=== PATIENT | male | born 1980 | race Caucasian/White ===

== ENCOUNTER 2019-04-08 10:08 | Emergency (ER) | payer BC ==
[~2019-04-08] VITALS: Ht 177.8 cm; Wt 94.8 kg
--- OUTSIDE RECORDS SUMMARY | ~2019-04-08 | XMS | Clinical Summary ---
Demographics + + + | Address | [address] | | | [place] [address] | + + + | Home Phone | | + + + | Preferred Language | Unknown | + + + | Marital Status | | + + + | Buddhist Affiliation | 1027 | + + + | Race | Unknown | + + + | Ethnic Group | Unknown | + + + Author + + + | Author | Tiffanie Ask Ziggy | + + + | Organization | [facility] | + + + | Address | Unknown | + + + | Phone | Unavailable | + + + Support + + + + + | Name | Relationship | Address | Phone | + + + + + | Message,Detailed | ECON | Unknown | | + + + + + | Rafita Hutchison | ECON | [address] | | | | | [place] | | | | | [address] | | + + + + + | Yanira Hutchison | ECON | [address] | | | | | [place] | | | | | [address] | | + + + + + Care Team Providers + +------+ + | Care Substation Operator Transforming Name | Role | Phone | + +------+ + | Vargas Rincon MD | PP | | + +------+ + Allergies No Known Allergies Current Medications No known medications Active Problems + + + | Problem | Noted Date | + + + | Corky hitchcock lumbar spine | 05/21/2015 | + + + Social History + +-------+ +--------+------+ | Tobacco Use | Types | Packs/Day | Years | Date | | | | | Used | | + +-------+ +--------+------+ | Never Smoker | | | | | + +-------+ +--------+------+ + + +---------+ + | Alcohol Use | Drinks/We | oz/Week | Comments | | | ek | | | + + +---------+ + | No | | | | + + +---------+ + + + + | Sex Assigned at | Date Recorded | | | | + + + | Not on file | | + + + Last Filed Vital Signs + + + + | Vital Sign | Reading | Time Taken | + + + + | Blood Pressure | 133/79 | 09/13/2015 1:50 PM PDT | + + + + | Pulse | 85 | 09/13/2015 1:50 PM PDT | + + + + | Temperature | 36.9 C (98.5 F) | 06/19/2015 9:00 AM PDT | + + + + | Respiratory Rate | 18 | 06/19/2015 9:00 AM PDT | + + + + | Oxygen Saturation | 96% | 09/13/2015 1:50 PM PDT | + + + + | Inhaled Oxygen | - | - | | Concentration | | | + + + + | Weight | 83.9 kg (185 lb) | 05/19/2016 10:29 AM PDT | + + + + | Height | 177.8 cm (5' 10") | 05/19/2016 10:29 AM PDT | + + + + | Body Mass Index | 26.54 | 05/19/2016 10:29 AM PDT | + + + + Plan of Treatment + + + + + | Health Maintenance | Due Date | Last Done | Comments | + + + + + | Vaccine: | | | | | Dtap/Tdap/Td (1 - | 0 | | | | Tdap) | | | | + + + + + | Vaccine: Influenza | | | | | (Season Ended) | 9 | | | + + + + + Results Not on filefrom Last 3 Months Insurance +---------+--------+ +------+-------+ + | Payer | Benefi | Subscriber | Type | Phone | Address | | | t Plan | ID | | | | | | / | | | | | | | Group | | | | | +---------+--------+ +------+-------+ + | PREMERA | PREMER | [id number] | | | [address] [address] | | | A BLUE | 4 | | | [place], [place] | | | CARD | | | | [phone] | +---------+--------+ +------+-------+ + + +--------+ +--------+ + + | Guarantor Name | Accoun | Relation to | Date | Phone | Billing Address | | | t Type | Patient | of | | | | | | | | | | + +--------+ +--------+ + + | SREE HUTCHISON | Person | Self [birth year] | Home: | [address] [place] [address] | | | al/Fam | | 1980 | [phone] | [place] | | | ant | | | [phone] | [phone] | + +--------+ +--------+ + +
--- OUTSIDE RECORDS SUMMARY | ~2019-04-08 | XMS | Clinical Summary ---
Demographics + + + | Address | [address] | | | [place] [address] | + + + | Home Phone | | + + + | Preferred Language | Unknown | + + + | Marital Status | | + + + | Sikhism Affiliation | 1027 | + + + | Race | Unknown | + + + | Ethnic Group | Unknown | + + + Author + + + | Author | [facility] | | | and [place] | + + + | Organization | [facility] | | | and [facility] | + + + | Address | Unknown | + + + | Phone | Unavailable | + + + Support + + +---------+ + | Name | Relationship | Address | Phone | + + +---------+ + | Yanira Daniel | ECON | Unknown | | + + +---------+ + Care Team Providers + +------+ + | Care Agriculturist Name | Role | Phone | + +------+ + | Rafita Rincon MD | PP | | + +------+ + Allergies No Known Allergies Medications No known medications Active Problems + + + | Problem | Noted Date | + + + | Closed fracture of lumbar vertebra without spinal cord injury | 10/24/2016 | + + + | Chronic midline low back pain without sciatica | 10/24/2016 | + + + Family History + + +------+ + | Medical History | Relation | Name | Comments | + + +------+ + | Other (see comment) | Brother | | VICTORIA'S DISEASE | + + +------+ + | No known problems | Father | | | + + +------+ + | No known problems | Maternal | | | | | Grandfath | | | | | er | | | + + +------+ + | Ovarian cancer | Maternal | | | | | Grandmoth | | | | | er | | | + + +------+ + | No known problems | Mother | | | + + +------+ + | No known problems | Paternal | | | | | Grandfath | | | | | er | | | + + +------+ + | Ovarian cancer | Paternal | | | | | Grandmoth | | | | | er | | | + + +------+ + | Thyroid disease | Sister | | | + + +------+ + + +------+ + + | Relation | Name | Status | Comments | + +------+ + + | Brother | | | VICTORIA'S DISEASE | | | | (Age | | | | | 25) | | + +------+ + + | Brother | | | | + +------+ + + | Father | | Alive | | + +------+ + + | Maternal Grandfather | | Other | Status Unknown | + +------+ + + | Maternal Grandmother | | Other | Status Unknown | + +------+ + + | Mother | | Alive | | + +------+ + + | Paternal Grandfather | | Other | Status Unknown | + +------+ + + | Paternal Grandmother | | Other | Status Unknown | + +------+ + + | Sister | | Alive | | + +------+ + + | Sister | | | | + +------+ + + Social History + +-------+ +--------+------+ | Tobacco Use | Types | Packs/Day | Years | Date | | | | | Used | | + +-------+ +--------+------+ | Never Smoker | | | | | + +-------+ +--------+------+ + +---+---+---+ | Smokeless Tobacco: | | | | | Never Used | | | | + +---+---+---+ + + +---------+ + | Alcohol Use | Drinks/We | oz/Week | Comments | | | ek | | | + + +---------+ + | No | 0 | 0.0 | | | | Standard | | | | | drinks or | | | | | | | | | | equivalen | | | | | t | | | + + +---------+ + + + + | Sex Assigned at | Date Recorded | | | | + + + | Not on file | | + + + + + + + | Job Start Date | Occupation | Industry | + + + + | Not on file | Not on file | Not on file | + + + + + + + + | Travel History | Travel Start | Travel End | + + + + + + | No recent travel history available. | + + Last Filed Vital Signs + + + + | Vital Sign | Reading | Time Taken | + + + + | Blood Pressure | 135/77 | 10/22/2016857 PST | + + + + | Pulse | 71 | 10/22/2016857 PST | + + + + | Temperature | - | - | + + + + | Respiratory Rate | - | - | + + + + | Oxygen Saturation | - | - | + + + + | Inhaled Oxygen | - | - | | Concentration | | | + + + + | Weight | 86.1 kg (189 lb 12.8 | 10/22/2016857 PST | | | oz) | | + + + + | Height | 177.8 cm (5' 10") | 10/22/2016857 PST | + + + + | Body Mass Index | 27.23 | 10/22/2016857 PST | + + + + Plan of [...] Not on filefrom Last 3 Months Insurance +-------+--------+ +--------+-------+---------+------+ | Payer | Benefi | Subscriber | Effect | Phone | Address | Type | | | t Plan | ID | richy | | | | | | / | | Dates | | | | | | Group | | | | | | +-------+--------+ +--------+-------+---------+------+ | BCBS | BCBS | [id number] | 11/30/19 | | | PPO | | | OOS | 4 | 16-Pre | | | | | | PPO | | sent | | | | +-------+--------+ +--------+-------+---------+------+ + +--------+ +--------+ + + | Guarantor Name | Accoun | Relation to | Date | Phone | Billing Address | | | t Type | Patient | of | | | | | | | | | | + +--------+ +--------+ + + | Sree Daniel Call | Person | Self [birth year] | | [address] | | | al/Fam | | 1980 | [phone] | [place] [address] | | | ant | | | 9 (Home) | | + +--------+ +--------+ + + Advance Directives Patient has advance care planning documents on file. For more information, please contact:[facility] [place] [address]
--- OUTSIDE RECORDS SUMMARY | ~2019-04-08 | XMS | Clinical Summary ---
Demographics + + + | Address | [address] | | | [place] [address] | + + + | Home Phone | | + + + | Preferred Language | Unknown | + + + | Marital Status | | + + + | Muslim Affiliation | 1027 | + + + | Race | Unknown | + + + | Ethnic Group | Unknown | + + + Author + + + | Author | [facility] | | | and [place] | + + + | Organization | [facility] | | | and [place] | [...] Team Providers + +------+ + | Care Lead Data Entry Operator Name | Role | Phone | + [...] +-------+--------+ +--------+-------+---------+------+ | BCBS | BCBS | [id number] | 11/30/19 | | | PPO | [...] | 1980 | [phone] | [place] [address] | | | ant | | | 9 (Home) | | + +--------+ +--------+ + + Advance Directives Patient has advance care planning documents on file. For more information, please contact:[facility] [place] [address]
--- OUTSIDE RECORDS SUMMARY | ~2019-04-08 | XMS | Clinical Summary ---
Demographics + + + | Address | [address] | | | [place] [address] | + + + | Home Phone | | + + + | Preferred Language | Unknown | + + + | Marital Status | | + + + | Oriental Orthodox Affiliation | 1027 | + + + | Race | Unknown | + + + | Ethnic Group | Unknown | + + + Author + + + | Author | Tiffanie SalesWarp | + + + | Organization | [facility] | + + + | Address [...] [place] | | | | | [address] | | + + + + + | Yainra Hutchison | ECON | [address] | | | | | [place] | | | | | [address] | | + + + + + Care Team Providers + +------+ + | Care Diesel Maintenance Technician Name | Role | Phone | + [...] +------+-------+ + | PREMERA | PREMER | [id number] | | | [address] [address] | | | A BLUE | 4 | | | [place], [place] | | | CARD | | | | [phone] | +---------+--------+ +------+-------+ + + +--------+ +--------+ + + | Guarantor Name | Accoun | Relation to | Date | Phone | Billing Address | | | t Type | Patient | of | | | | | | | | | | + +--------+ +--------+ + + | SREE HUTCHISON | Person | Self | [birth year] | Home: | [address] [place] [address] | | | al/Fam | | 1980 | [phone] | [place] | | | ant | | | [phone] | [phone] | + +--------+ +--------+ + +
[2019-04-08] MEDS ORDERED: ADVIL200 M1 PO (10:18)
== END 2019-04-08 10:23 | disposition home or self-care (01) ==
LOC: ED 10:08
DX: S49.91XA Unspecified injury of right shoulder and upper arm, initial encounter (principal); X58.XXXA Exposure to other specified factors, initial encounter

== ENCOUNTER 2025-07-26 11:57 | Emergency (ER) | payer OTHER ==
[~2025-07-26] VITALS: Ht 177.8 cm; Wt 95.0 kg
[~2025-07-26 11:57] MED LIST: ADVIL200 M1 PO
[2025-07-26] MEDS ORDERED: DIPHTH,PERTUSS(ACELL),TET VAC 0.5 ML SYRINGE IM ONE (12:30)
[2025-07-26] MEDS ORDERED: CEPHALEXIN500 M1 PO (13:29)
[2025-07-26 13:35] VITALS: BP 141/85
== END 2025-07-26 13:35 | disposition home or self-care (01) ==
LOC: ED 11:57
DX: S61.215A Laceration without foreign body of left ring finger without damage to nail, initial encounter (principal); W45.8XXA Other foreign body or object entering through skin, initial encounter
CPT/HCPCS: 90471; 90715; 99283-25